=== PATIENT | male | born 1950 | race Caucasian/White ===

== ENCOUNTER 2020-09-05 16:49 | Inpatient (IN) | payer MEDICARE, OTHER ==
[~2020-09-05] VITALS: Ht 170.2 cm; Wt 83.6 kg
--- NOTE | 2020-09-05 21:00 | NUR ---
ADMITTED TO ROOM ALERT AND ORIENTIATED, C/O PAIN TO RIGHT LEG, REQUESTING TRAMADOL FOR PAIN, NOT ORDERED INSTRUSTED WILL HAVE TO CALL DR FOR ORDER, IV STARTED R FA 20G X 1 ATTEMPT, SEE ASSESSMENT, CALL LIGHT IN REACH
[2020-09-05 23:47] VITALS: BP 131/54; Ht 170.2 cm; Wt 83.6 kg
[2020-09-06] VITALS: BP 131/59
[2020-09-06] MEDS ORDERED: GLUCOPHAGE1000 MG PO (00:27)
[2020-09-06] MEDS ORDERED: GABAPENTIN300 MG PO (00:28)
[2020-09-06] MEDS ORDERED: GABAPENTIN100 MG PO (00:29)
[2020-09-06] MEDS ORDERED: ENTRESTO 97 MG1 EACH PO (00:29)
[2020-09-06] MEDS ORDERED: FUROSEMIDE40 MG PO (00:30)
[2020-09-06] MEDS ORDERED: COREG12.5 MG PO (00:30)
[2020-09-06] MEDS ORDERED: LIPITOR80 MG PO (00:31)
[2020-09-06] MEDS ORDERED: GLIMEPIRIDE4 MG PO (00:32)
[2020-09-06] MEDS ORDERED: ISOSORBIDE MONO60 M1 (00:32)
[2020-09-06] MEDS ORDERED: LEVOTHYROXINE125 MCG PO (00:33)
[2020-09-06] MEDS ORDERED: TRESIBA FL100 UNIT/1 SQ (00:35)
[2020-09-06 04:00] VITALS: BP 142/62
--- NOTE | 2020-09-06 07:40 | NUR ---
PT IS RESTING IN BED WITH EYES OPEN. RESPIRATIONS ARE EVEN AND UNLABORED. PT IS AAO X 4 AND ANSWERS ALL QUESTIONS APPROPRIATELY. PIV TO RIGHT FA IS SL AND FLUSHES WITHOUT DIFFICULTY. BLE PEDAL PULSES ARE PALP AND CAP REFILL IS < 3. PT REPORTS PAIN TO RIGHT HIP/BUTTOCK BUT DENIES NEEDS FOR PAIN MED AT THIS TIME. INCENTIVE SPIROMETER WITHIN REACH AND ENCOURAGED. PT DENIES PRESENCE OF DYSPNEA/SOB/N/V AT THIS TIME. BED IS IN THE LOWEST POSITION. CALL LIGHT AND BEDSIDE TABLE ARE WITHIN REACH. SIDE RAILS X 2. PT DENIES FURTHER NEEDS. WILL CONT TO MONITOR.
[2020-09-06 09:11] VITALS: BP 134/48
--- NOTE | 2020-09-06 09:45 | NUR ---
BRINGS PT HOME MEDICATION THAT WAS NOT AVAILABLE FROM PHARMACY. MEDICATION TAKEN TO PHARMACY FOR PT LABEL.
--- NOTE | 2020-09-06 11:15 | NUR ---
PT SPOUSE WOULD LIKE TO TAKE AMARYL PO BID AND WOULD LIKE ORDER TO BE CHANGED. WILL NOTIFY PHYSICIAN. PT ALSO REQUESTING TO TAKE AMARYL AT THIS TIME AND METFORMIN.
--- NOTE | 2020-09-06 11:21 | NUR ---
SPOKE JANET HUIZAR AT DR YATES OFFICE. TELEPHONE ORDER RECD FOR ONE TIME DOSE OF AMARYL 4MG NOW AND ONE TIME DOSE OF METFORMIN 1000MG NOW. WILL PLACE ORDERS AND ADMINISTER.
--- NOTE | 2020-09-06 11:27 | NUR ---
PT REQUESTS TO TAKE METFORMIN AND AMARYL MEDICATION IN AM AND PM AT 0900 AND 2100. WILL FIX MEDICATION TIME ORDER. PT STATES THAT THIS IS HOW HE TAKES HIS MEDICATION AT HOME AND IT "IS WORKING WELL".
[2020-09-06 11:32] VITALS: BP 114/51
--- NOTE | 2020-09-06 14:28 | HP ---
PATIENT: SHELDON PATEL MEDICAL RECORD: [id number] ACCOUNT: [id number] LOCATION:D.[id number] : 48 ADMISSION DATE: 09/05/20 PCP: OLIVIA YATES MD HISTORY AND PHYSICAL EXAMINATION DATE OF ADMISSION: 09/05/2020. CHIEF COMPLAINT: Pain and swelling in right leg. HISTORY OF PRESENT ILLNESS: A 70-year-old white male with a history of heart disease, diabetes, and hypertension, presented to the clinic today for at least 6-day history of pain in the right leg. He says this pain starts at the upper portion of the thigh and goes all the way down to the back of the knee. He denies any trauma. He states the leg "feels tight." Pain is worse at times with weightbearing, but also when he is just lying down at night. He has no history of blood clots. He has no family history of blood clots. He denies chest pain or shortness of breath at this time. He was sent over to [facility] for a stat venous Doppler ultrasound of the right lower extremity and that result showed a partial occlusive DVT in the right popliteal vein and this puts the patient at risk for extension of thrombus and he is directly admitted then to [facility] for treatment of right lower extremity DVT. PAST MEDICAL HISTORY: He has again type 2 diabetes, on insulin. He has coronary artery disease, hyperlipidemia, hypertension, sleep apnea, obesity. PAST SURGICAL HISTORY: Coronary artery bypass graft, pacemaker placement, right knee surgery times 2, left knee surgery. He has had carpal tunnel release and lap band surgery in April 2016. DRUG ALLERGIES: None. HOME MEDICATIONS: Atorvastatin 80 mg once a day, carvedilol 12.5 mg twice a day, isosorbide mononitrate 60 once a day, Entresto 97/103 one pill twice a day, gabapentin 300 mg twice a day, furosemide 40 mg once a day, glimepiride 4 mg twice a day, levothyroxine 125 mcg once a day, metformin 1000 mg twice a day, and he takes Tresiba up to 30 units subcutaneously once a day. HABITS: He is a former smoker. He drinks alcohol occasionally. No illicit drug use. FAMILY HISTORY: Father is . He had lung cancer. Mother is . SOCIAL HISTORY: The patient is and retired. REVIEW OF SYSTEMS: GENERAL: No major weight changes since he has had his weight loss after his lap band surgery in 2017. HEENT: No particular sinus or allergy problems. RESPIRATORY: No known diagnosis of COPD or asthma. CARDIAC: He has a history of coronary artery disease. He is followed by Dr. Castillo. GASTROINTESTINAL: He has history of lap band surgery. He has had heartburn. GENITOURINARY: No trouble with urination. No BPH. MUSCULOSKELETAL: He has had arthritic aches and pains. HISTORY AND PHYSICAL [id number] SHELDON PATEL NEUROLOGIC: Denies seizures or migraine headaches. PSYCHIATRIC: No depression or melancholia. PHYSICAL EXAMINATION: VITAL SIGNS: Temperature 97.3, pulse 59, respirations 16, blood pressure 131/54, O2 sat 96%. GENERAL: He does not appear to be in acute distress; however, when he walks, he is limping and he is favoring his right leg due to pain in the upper part of his leg. SKIN: Warm and dry. HEENT: Grossly within normal limits. NECK: Supple. No JVD or bruit. HEART: Regular rate and rhythm without murmur. LUNGS: Clear. ABDOMEN: Soft, flat, nontender. EXTREMITIES: There is some mild swelling in the right leg in the right thigh area. There is some tenderness in the posterior aspect of the thigh area. No open wounds. No coolness in the extremities. DIAGNOSTIC DATA: X-ray, again I got a call from the radiologist showing partial occlusive DVT in the right popliteal vein putting the patient at risk for extension of this thrombus. ASSESSMENT: 1. Right lower extremity DVT. 2. History of coronary artery disease. 3. Hypertension. 4. Diabetes. PLAN: He is directly admitted to [facility] and started on subcutaneous Lovenox. We will place him on telemetry. We will start oral blood thinners tomorrow. We will control his pain. Other tests and procedures as warranted. TRANSINT:[id number] Voice Confirmation ID: [id number] DOCUMENT ID: [id number] OLIVIA YATES MD at 1428 CC: [id number] DICTATION DATE: 09/06/20208 STORE ASSISTANT: 09/06/20 030 ADM IN [place] [id number] [place] [address]
[2020-09-06] MEDS ORDERED: ELIQUIS5 MG PO (15:09)
--- NOTE | 2020-09-06 16:50 | NUR ---
DISCHARGE INSTRUCTIONS COVERED WITH PT BOTH WRITTEN AND VERBAL. PT STATES APPROPRIATE ELIQUIS REGIMEN PER ORDER. PIV TO RIGHT FA REMOVD WITH CATHETER TIP INTACT. DRESSING APPLIED. ALL DISCHARGE PAPERS SIGNED AND PLACED IN PT CHART. PT SPOUSE AT BEDSIDE FOR TRANSPORT HOME. WHEELCHAIR USED TO ESCORT PT TO POV BY THIS NURSE. PT THANKS THIS NURSE FOR CARE GIVEN DURING THIS SHIFT. PT DENIES PRESENCE OF QUESTIONS/CONCERNS/NEEDS AT THIS TIME.
[2020-09-06 17:39] VITALS: BP 147/68
--- NOTE | 2020-09-09 18:35 | MORECARE ---
CASE MANAGEMENT DISCHARGE SUMMARY PATIENT: SHELDON PATEL UNIT: [id number] ADM DATE: 09/05/20 AGE: 70 : 49 SEX: M ROOM/BED: [id number] AUTHOR: BECKA,DOC PHYSICIAN: REFERRING PHYSICIAN: OLIVIA YATES MD DATE OF SERVICE: 09/09/20 Case Management Discharge Planning Summary DCP REVIEW SUMMARY ANTICIPATED D/C DATE: EXPECTED LOS : CASE STATUS: DCP Initiated INITIAL REVIEW: 09/05/2020 INITIAL REVIEWER: Kalee Keys FINAL DISCHARGE DISPOSITION: : FINAL REVIEWER: FINAL REVIEW DATE: DCP [employer] Questions [employer] Answers QUESTION: ANSWER : PATIENT: SHELDON PATEL ENCOUNTER: [id number] MEDICAL RECORD#: [id number] ADMISSION DATE: 09/05/2020 DISCHARGE DATE: 09/06/2020 ATTENDING MD: OLIVIA GRAY : AGE: 70 MARITAL STATUS: M DC PLAN ID: [id number] FACILITY: [facility] PRINTED ON: 09/09/20 18:35 CT All edits/amendments must be made on the electronic document DICTATION DATE: 09/09/201833 RAIL GRINDER: DM 09/09/201833 RPT#: [id number] DC DATE:09/06/20 STATUS: DIS IN [facility] [address] [facility] [place] [address] END OF REPORT
== END 2020-09-06 17:43 | disposition home or self-care (01) | DRG 301 ==
LOC: D.US 16:49 → D.MS 18:53
PROVIDERS: ADMIT Family Medicine; ATTEND Family Medicine
DX: I82.431 Acute embolism and thrombosis of right popliteal vein (principal); I10 Essential (primary) hypertension; Z79.4 Long term (current) use of insulin; G47.30 Sleep apnea, unspecified; E66.9 Obesity, unspecified; I25.10 Atherosclerotic heart disease of native coronary artery without angina pectoris; Z95.0 Presence of cardiac pacemaker; E10.9 Type 1 diabetes mellitus without complications